=== PATIENT | male | born 1935 | race Caucasian/White ===

== ENCOUNTER → 2017-05-23 | Outpatient (CLI) | payer OTHER ==
[~2017-05-23] MED LIST: ACET-1256 PO; ASPCH81X PO; ATOR-54 PO; DONE5TAB14 PO; FLM4; FURO80TA63 PO; METF1TAB53 PO; NAPR1TAB9 PO; NRN600 PO; RAMI5CAP
== END ==
LOC: C.LABMFLN 11:56
PROVIDERS: ATTEND Urology
DX: R39.15 Urgency of urination (principal)